=== PATIENT | male | born 1990 | race African-American/Black ===

== ENCOUNTER 2016-04-26 11:33 | Emergency (ER) | payer SELFPAY ==
--- NOTE | 2016-04-26 12:01 | ER Document Report ---
ED Medical Screen (RME) - General Stated Complaint: RIGHT TESTICLE PAIN Notes: 26 yo male c/o right testicular pain, hit in testicle with hand during basketball game. + swelling. injury occured last night. TRAVEL OUTSIDE OF THE [place] IN LAST 30 DAYS: No - Related Data Allergies/Adverse Reactions: No Known Allergies Allergy (Verified 12/24/13 11:03) Past Medical History Pulmonary Medical History: Reports: Hx Asthma - Immunizations Hx Diphtheria, Pertussis, Tetanus Vaccination: Yes Physical Exam - Vital signs Vitals: Temp Pulse Resp BP Pulse Ox 97.6 F 74 18 125/77 99 04/26/16 11:55 04/26/16 11:55 04/26/16 11:55 04/26/16 11:55 04/26/16 11:55 Course - Vital Signs Vital signs: Temp Pulse Resp BP Pulse Ox 97.6 F 74 18 125/77 99 04/26/16 11:55 04/26/16 11:55 04/26/16 11:55 04/26/16 11:55 04/26/16 11:55
[2016-04-26] MEDS ORDERED: OXYCODONE-ACETAMINOPHEN 5-325 MG TABLET PO ONE (12:02)
[2016-04-26] MEDS ORDERED: ONDANSETRON 4 MG TAB.RAPDIS PO ONE (12:02)
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
[2016-04-26 13:49] LABS: APPEARANCE,URINE CLOUDY; BILIRUBIN,URINE NEGATIVE (NEGATIVE); GLUCOSE, URINE NEGATIVE (NEGATIVE); KETONES,URINE NEGATIVE (NEGATIVE); LEUKOCYTE ESTERASE,URINE LARGE (NEGATIVE); NITRITE,URINE NEGATIVE (NEGATIVE); PROTEIN,URINE 30 mg/dL (NEGATIVE); URINE SPECIFIC GRAVITY 1.024
[2016-04-26] MEDS ORDERED: CEFTRIAXONE INJ 1000 MG VIAL IM ONE (13:52)
[2016-04-26] MEDS ORDERED: LIDOCAINE 1% INJ-PF (10 MG/ML) 30 ML SDV INJ ONE (13:52)
[2016-04-26] MEDS ORDERED: DOXYCYCLINE HYCLATE 100 MG TABLET PO ONE (13:52)
[2016-04-26 15:07] VITALS: BP 128/60
== END 2016-04-26 15:06 | disposition home or self-care (01) ==
LOC: ER 11:33
DX: S39.94XA Unspecified injury of external genitals, initial encounter (principal); N45.1 Epididymitis; N39.0 Urinary tract infection, site not specified; N50.811 Right testicular pain; F17.210 Nicotine dependence, cigarettes, uncomplicated; X58.XXXA Exposure to other specified factors, initial encounter
CPT/HCPCS: 99284; 96372; 87086; 81001; 76870; 93976; S0119; J3490; J0696

== ENCOUNTER 2016-08-26 18:15 | Emergency (ER) | payer OTHER ==
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
[2016-08-26] MEDS ORDERED: IBUPROFEN 800 MG TABLET PO ONE (18:46)
[2016-08-26] MEDS ORDERED: DIPH/PERTUSS(ACELL)/TETANUS VAC/PF 0.5 ML SYR (>=10YO) IM ONE (18:54)
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
[2016-08-26 20:26] VITALS: BP 134/87
== END 2016-08-26 20:24 | disposition home or self-care (01) ==
LOC: ER 18:15
DX: S16.1XXA Strain of muscle, fascia and tendon at neck level, initial encounter (principal); S46.912A Strain of unspecified muscle, fascia and tendon at shoulder and upper arm level, left arm, initial encounter; S20.20XA Contusion of thorax, unspecified, initial encounter; S50.312A Abrasion of left elbow, initial encounter; V48.6XXA Car passenger injured in noncollision transport accident in traffic accident, initial encounter; M54.2 Cervicalgia; M25.512 Pain in left shoulder; R07.81 Pleurodynia; M54.5 Low back pain; F17.200 Nicotine dependence, unspecified, uncomplicated; J45.909 Unspecified asthma, uncomplicated
CPT/HCPCS: 72110; 72125; 90471; 90715; 99284

== ENCOUNTER 2017-04-20 05:02 | Emergency (ER) | payer SELFPAY ==
[2017-04-20] MEDS ORDERED: NAPROXEN 250 MG TABLET PO ONE (05:17)
[2017-04-20] MEDS ORDERED: IBUPROFEN 600 MG TABLET PO ONE (05:21)
[2017-04-20] MEDS ORDERED: ACETAMINOPHEN 325 MG TABLET PO ONE (05:22)
--- NOTE | 2017-04-20 05:25 | ER Document Report ---
ED Cardiac - General Chief Complaint: Rib Pain Stated Complaint: CHEST PAIN Time Seen by Provider: 04/20/17 05:21 Notes: The patient is a 27-year-old male who presents with 3 months of intermittent left-sided chest pain that is worse with movement and palpation. He lifts heavy objects. He denies shortness of breath, nausea, vomiting, fevers, cough, hemoptysis, leg swelling, back pain, numbness or tingling. TRAVEL OUTSIDE OF THE [place] IN LAST 30 DAYS: No - Related Data Allergies/Adverse Reactions: No Known Allergies Allergy (Verified 08/26/16 18:24) Past Medical History - General Information source: Patient - Social History Smoking Status: Unknown if Ever Smoked Family History: None Pulmonary Medical History: Reports: Hx Asthma Renal/ Medical History: Denies: Hx Peritoneal Dialysis - Immunizations Hx Diphtheria, Pertussis, Tetanus Vaccination: Yes Review of Systems - Review of Systems Notes: REVIEW OF SYSTEMS: CONSTITUTIONAL: -fevers, -chills EENT: -eye pain, -difficulty swallowing, -nasal congestion CARDIOVASCULAR: +chest pain, -syncope. RESPIRATORY: -cough, -SOB GASTROINTESTINAL: -abdominal pain, -nausea, -vomiting, -diarrhea GENITOURINARY: -dysuria, -hematuria MUSCULOSKELETAL: -back pain, -neck pain SKIN: -rash or skin lesions. HEMATOLOGIC: -easy bruising or bleeding. LYMPHATIC: -swollen, enlarged glands. NEUROLOGICAL: -altered mental status or loss of consciousness, -headache, - neurologic symptoms PSYCHIATRIC: -anxiety, -depression. ALL OTHER SYSTEMS REVIEWED AND NEGATIVE. Physical Exam - Vital signs Vitals: Temp Pulse Resp BP Pulse Ox 97.6 F 62 18 121/70 100 04/20/17 05:11 04/20/17 05:11 04/20/17 05:11 04/20/17 05:11 04/20/17 05:11 - Notes Notes: PHYSICAL EXAMINATION: GENERAL: Well-appearing, well-nourished and in no acute distress. HEAD: Atraumatic, normocephalic. EYES: Pupils equal round and reactive to light, extraocular movements intact, sclera anicteric, conjunctiva are normal. ENT: nares patent, oropharynx clear without exudates. Moist mucous membranes. NECK: Normal range of motion, supple without lymphadenopathy LUNGS: Breath sounds clear to auscultation bilaterally and equal. No wheezes rales or rhonchi. CHEST WALL: Tenderness over left lateral chest wall. No rashes. HEART: Regular rate and rhythm without murmurs ABDOMEN: Soft, nontender, normoactive bowel sounds. No guarding, no rebound. No masses appreciated. EXTREMITIES: Normal range of motion, no pitting or edema. No cyanosis. NEUROLOGICAL: Cranial nerves grossly intact. Normal speech, normal gait. Normal sensory and motor exams. PSYCH: Normal mood, normal affect. SKIN: Warm, Dry, normal turgor, no rashes or lesions noted. Course - Re-evaluation Re-evalutation: Patient appears well. His symptoms are ongoing for the past 3 months and are reproducible in nature. He is PERC negative and his HEART score is 0. Instructed him to follow-up with his primary care physician after using anti- inflammatories for a recheck. - Vital Signs Vital signs: Temp Pulse Resp BP Pulse Ox 97.6 F 62 18 121/70 100 04/20/17 05:11 04/20/17 05:11 04/20/17 05:11 04/20/17 05:11 04/20/17 05:11 - Diagnostic Test Radiology reviewed: Image reviewed, Reports reviewed Radiology results interpreted by me: CXR: NAD - EKG Interpretation by Me EKG shows normal: Sinus rhythm, [place], Intervals, QRS Complexes Rate: Normal Additional EKG results interpreted by me: Early repol Discharge - Discharge Clinical Impression: Chest wall pain Condition: Stable Disposition: HOME, SELF-CARE Additional Instructions: CHEST PAIN OF UNCLEAR CAUSE: The exact cause of your chest pain isn't clear. Fortunately, there is no evidence of a dangerous medical condition. Further testing may be required to find the source of the pain. Most often, we find that this pain is coming from the chest wall -- the muscles or rib joints in the chest. But chest pain can come from the lung and lung lining, the esophagus, the heart valves or heart lining, and even the stomach or gallbladder. Rest. Eat lightly until the pain is gone. We may prescribe medicine for pain and inflammation. You should call the physician immediately if the pain radiates to the shoulder, jaw or arms; if you start to run a fever or develop a cough; or if you develop shortness of breath, or other new or alarming symptoms. NORMAL EXAM AND WORKUP: At this time, your examination and workup show no significant abnormality. No significant abnormal physical findings were noted. All laboratory, EKG, and imaging (x-ray, CT scans, ultrasound) studies that were ordered show no significant abnormality. Although your examination and all studies that were ordered showed no significant abnormal finding, there are no examinations and no studies that are 100% accurate. There is always the possibility that some abnormality could exist and not be detected with physical examination or within the limits and capabilities of laboratory and other studies. You should return or follow up as you were instructed on your visit today for further evaluation if your symptoms do not resolve. CHEST WALL PAIN: Your chest pain may be coming from the chest wall. This is often caused by straining the muscles or joints in the chest during physical activity, direct trauma, coughing, or vigorous vomiting. Persons with arthritis are especially prone to this type of pain, due to inflammation of the cartilage joints near the breast bone. Occasionally, no cause can be found. Rest from strenuous physical activity. This kind of chest pain is usually made worse by movement of the chest. Depending on the symptoms, we may prescribe medicine for pain, muscle relaxation, and antiinflammatory effects. If the pain is new, and seems to be due to muscle strain, cold packs can help. Otherwise, apply gentle warmth to the painful area for 15 minutes every hour or two. You should call contact the doctor immediately if things change. Further evaluation is needed if you develop a fever or cough, if the nature of the pain changes, or if you become short of breath. FOLLOW-UP CARE: If you have been referred to a physician for follow-up care, call the physician s office for an appointment as you were instructed or within the next two days. If you experience worsening or a significant change in your symptoms, notify the physician immediately or return to the Emergency Department at any time for re-evaluation. Prescriptions: Naproxen [Naprosyn 250 mg Tablet] 500 mg PO Q12H PRN #20 tablet PRN Reason: Referrals: [facility] [Outside] - Follow up as needed
--- NOTE | 2017-04-20 05:45 | RADIOLOGY REPORT (SQ) ---
EXAM DESCRIPTION: CHEST PA/LAT CLINICAL HISTORY: chest pain COMPARISON: None. FINDINGS: Frontal and lateral views of the chest. The cardiomediastinal silhouette has normal size and contour. No consolidation, pneumothorax, or pleural effusion. No acute osseous abnormality. Upper abdominal soft tissues are unremarkable. IMPRESSION: 1. No acute pulmonary process identified.
[2017-04-20 05:54] VITALS: BP 130/75
--- NOTE | 2017-04-20 08:53 | EKG REPORT ---
SEVERITY:- ABNORMAL ECG - SINUS RHYTHM CONSIDER LEFT VENTRICULAR HYPERTROPHY ST ELEV, PROBABLE NORMAL EARLY REPOL PATTERN : Confirmed by: Toi Mccray 20-Apr-2017 08:51:20
== END 2017-04-20 05:54 | disposition home or self-care (01) ==
LOC: ER 05:02
DX: R07.89 Other chest pain (principal); R07.81 Pleurodynia; X50.0XXA Overexertion from strenuous movement or load, initial encounter
CPT/HCPCS: 71046; 93005; 93010; 99284

== ENCOUNTER 2017-07-12 04:40 | Emergency (ER) | payer SELFPAY ==
--- NOTE | 2017-07-12 06:04 | ER Document Report ---
ED Skin Rash/Insect Bite/Abscs - General Chief Complaint: Abscess Stated Complaint: LEG PAIN Time Seen by Provider: 07/12/17 06:02 Information source: Patient Notes: This is a 27-year-old male to the emergency department complaining of pain in the right inguinal area. States that it feels like an abscess. Had this happen once when he was little and his brother took a knife to it and cut it open and a bunch of blood came out. States that has been getting progressively worse throughout the night with tenderness in the right inguinal area where the scrotum intersects with the thigh/femoral area. Denies any fevers. Denies any difficulty urinating. Does have some mild pain in the right testicle. Any medications. Not allergic to any medications. TRAVEL OUTSIDE OF THE [place] IN LAST 30 DAYS: No - HPI Patient complains to provider of: Skin rash/lesion, Tender/swollen area. No: Insect bite, Spider bite Onset: Yesterday Onset/Duration: Gradual Quality of pain: Achy, Throbbing - Related Data Allergies/Adverse Reactions: No Known Allergies Allergy (Verified 08/26/16 18:24) Past Medical History - General Information source: Patient - Social History Smoking Status: Never Smoker Frequency of alcohol use: None Drug Abuse: None Lives with: Alone Family History: None - Medical History Medical History: Negative Pulmonary Medical History: Reports: Hx Asthma Renal/ Medical History: Denies: Hx Peritoneal Dialysis Infectious Medical History: Reports: None Surgical Hx: Negative - Immunizations Hx Diphtheria, Pertussis, Tetanus Vaccination: Yes Review of Systems - Review of Systems Constitutional: denies: Fever, Malaise, Weakness EENT: denies: Eye pain, Difficulty swallowing, Mouth pain Cardiovascular: denies: Chest pain, Dyspnea, Dizziness Respiratory: denies: Cough, Short of breath, Wheezing Gastrointestinal: denies: Abdominal pain, Nausea, Vomiting Genitourinary: denies: Burning, Dysuria, Discharge Male Genitourinary: See HPI, Testicular pain. denies: Penile discharge Musculoskeletal: denies: Back pain, Muscle pain, Leg swelling Skin: See HPI, Lesions, Lumps Hematologic/Lymphatic: No symptoms reported Neurological/Psychological: denies: Confusion, Weakness, Numbness Physical Exam - Vital signs Vitals: Temp Pulse Resp BP Pulse Ox 97.9 F 68 18 148/76 H 99 07/12/17 04:46 05/31/18 04:46 07/12/17 04:46 07/12/17 04:46 07/12/17 04:46 Interpretation: Normal - General General appearance: Appears well, Alert - HEENT Head: Normocephalic, Atraumatic Eyes: Normal Pupils: PERRL - Respiratory Respiratory status: No respiratory distress Chest status: Nontender Breath sounds: Normal Chest palpation: Normal - Cardiovascular Rhythm: Regular Heart sounds: Normal auscultation Murmur: No - Abdominal Inspection: Normal Distension: No distension Bowel sounds: Normal Tenderness: Nontender Organomegaly: No organomegaly - Genitourinary Inspection: Other - Is a small area of tenderness where the scrotum meets the inguinal/femoral area. There is some fullness there. Small amount of lymphadenopathy present. Right testicle is palpable. Mildly tender but mobile. - Extremities General upper extremity: Normal inspection, Nontender, Normal color, Normal ROM , Normal temperature General lower extremity: Normal color, Normal ROM, Normal temperature, Normal weight bearing, Other - Tenderness to palpation right inguinal area. No: Aman' s sign - Neurological Neuro grossly intact: Yes Cognition: Normal Orientation: AAOx4 Kandy Coma Scale Eye Opening: Spontaneous Kandy Coma Scale Verbal: Oriented Kandy Coma Scale Motor: Obeys Commands Kandy Coma Scale Total: 15 Speech: Normal Motor strength normal: LUE, RUE, LLE, RLE Sensory: Normal - Skin Skin Temperature: Warm Skin Moisture: Dry Skin Color: Normal, Other - Mild tenderness and swelling in the right inguinal area where the scrotum meets the thigh. Course - Re-evaluation Re-evalutation: 07/12/17 09:29 Labs are fairly unremarkable. Ultrasound was used to locate the most fluctuant area. Abscess I&D was performed. Please see procedure note. Iodoform gauze approximately 3 inches placed. Instructed patient on how to place gauze. Instructed him to return in 24 hours for recheck. 07/12/17 09:32 Laboratory 07/12/17 07/12/17 07/12/17 06:40 06:40 06:40 WBC 9.5 RBC 4.10 L Hgb 13.3 L Hct 37.9 MCV 92 MCH 32.4 MCHC 35.1 RDW 13.6 Plt Count 244 Seg Neutrophils % 63.8 Lymphocytes % 19.7 Monocytes % 8.5 Eosinophils % 7.1 H Basophils % 0.9 Absolute Neutrophils 6.1 Absolute Lymphocytes 1.9 Absolute Monocytes 0.8 Absolute Eosinophils 0.7 H Absolute Basophils 0.1 Sodium 141.8 Potassium 4.4 Chloride 105 Carbon Dioxide 29 Anion Gap 8 BUN 14 Creatinine 0.98 Est GFR ( Amer) > 60 Est GFR (Non-Af Amer) > 60 Glucose 103 Lactic Acid 1.0 Calcium 9.8 Total Bilirubin 0.1 L Direct Bilirubin 0.1 Neonat Total Bilirubin Not Reportable Neonat Direct Bilirubin Not Reportable Neonat Indirect Bili Not Reportable AST 15 L ALT 21 Alkaline Phosphatase 52 Total Protein 6.9 Albumin 3.7 Urine Color Urine Appearance Urine pH Ur Specific [place] Urine Protein Urine Glucose (UA) Urine Ketones Urine Blood Urine Nitrite Urine Bilirubin Urine Urobilinogen Ur Leukocyte Esterase Urine WBC (Auto) Urine RBC (Auto) Urine Mucus (Auto) Urine Ascorbic Acid 07/12/17 06:45 WBC RBC Hgb Hct MCV MCH MCHC RDW Plt Count Seg Neutrophils % Lymphocytes % Monocytes % Eosinophils % Basophils % Absolute Neutrophils Absolute Lymphocytes Absolute Monocytes Absolute Eosinophils Absolute Basophils Sodium Potassium Chloride Carbon Dioxide Anion Gap BUN Creatinine Est GFR ( Amer) Est GFR (Non-Af Amer) Glucose Lactic Acid Calcium Total Bilirubin Direct Bilirubin Neonat Total Bilirubin Neonat Direct Bilirubin Neonat Indirect Bili AST ALT Alkaline Phosphatase Total Protein Albumin Urine Color YELLOW Urine Appearance CLEAR Urine pH 6.0 Ur Specific [place] 1.017 Urine Protein NEGATIVE Urine Glucose (UA) NEGATIVE Urine Ketones NEGATIVE Urine Blood NEGATIVE Urine Nitrite NEGATIVE Urine Bilirubin NEGATIVE Urine Urobilinogen 2.0 H Ur Leukocyte Esterase NEGATIVE Urine WBC (Auto) 1 Urine RBC (Auto) 0 Urine Mucus (Auto) RARE Urine Ascorbic Acid NEGATIVE Scrotum Ultrasound 07/12/17 06:19 IMPRESSION: 1. Normal blood flow identified in the testicles bilaterally. 2. In the area of concern in the inferior scrotum and right thigh there is a 3.2 cm heterogeneous fluid collection with increased vascularity. These findings are concerning for abscess. Hematoma or seroma could possibly produce similar appearance. 3. Mild prominence of the right scrotal soft tissues likely represent cellulitis - Vital Signs Vital signs: Temp Pulse Resp BP Pulse Ox 97.9 F 68 18 148/76 H 99 07/12/17 04:46 07/12/17 04:46 07/12/17 04:46 07/12/17 04:46 07/12/17 04:46 - Laboratory Result Diagrams: 07/12/17 06:40 07/12/17 06:40 Laboratory results interpreted by me: 07/12/17 07/12/17 07/12/17 06:40 06:40 06:45 RBC 4.10 L Hgb 13.3 L Eosinophils % 7.1 H Absolute Eosinophils 0.7 H Total Bilirubin 0.1 L AST 15 L Urine Urobilinogen 2.0 H Procedures - Incision and Drainage Right Lower Leg Type: Simple Anesthetic type: 1% Lidocaine mL's of anesthetic: 8 Blade size: 11 I&D procedure: Betadine prep applied, Iodoform packing placed Incision Method: Incision made by scalpel Amount/type of drainage: 5 Male anatomy: 1 - Right inguinal area Discharge - Discharge Clinical Impression: Abscess of groin, right Condition: Good Disposition: HOME, SELF-CARE Instructions: Abscess ([facility]), Trimethoprim-Sulfa ([facility]), Cephalexin ([facility]) Additional Instructions: In 24 hours for recheck. If unable to be seen in 24 hours then the packing will need to be replaced as described and instructed in the emergency department by Dr. Guido. In the event that you develop any worsening symptoms including but not limited to the following, then please return: Swelling of the scrotum, swelling of the leg, fever, bleeding or for other concerns Prescriptions: Cephalexin Monohydrate [Keflex 500 mg Capsule] 500 mg PO Q6H 78 Days #28 capsule Hydrocodone/Acetaminophen [Elton 5-325 mg Tablet] 1 tab PO TID PRN 2 Days #6 tablet PRN Reason: Sulfamethoxazole/Trimethoprim [Bactrim Ds Tablet] 1 each PO BID 7 Days #14 tablet Referrals: JANETH MEZA II, MD [JACKI PRYOR] - Follow up in 3-5 days
[2017-07-12] MEDS ORDERED: KETOROLAC TROMETHAMINE INJ/PF 30 MG/1 ML SDV IV ONE (06:19)
[2017-07-12] MEDS ORDERED: CEFTRIAXONE 1 GM/D5W RTU 1 GM/50 ML RTUPB IV ONE (06:19)
[2017-07-12 06:50] LABS: ABSOLUTE BASOPHILS # (AUTO) 0.1 10^3/uL (0.0-0.2); ABSOLUTE EOSINOPHILS # (AUTO) 0.7 10^3/uL (0.0-0.6); ABSOLUTE LYMPHOCYTES (AUTO) 1.9 10^3/uL (0.5-4.7); ABSOLUTE MONOCYTES (AUTO) 0.8 10^3/uL (0.1-1.4); ABSOLUTE NEUT (AUTO) 6.1 10^3/uL (1.7-8.2); BASOPHILS % (AUTO) 0.9 % (0-2); EOSINOPHILS % (AUTO) 7.1 % (0-6); HEMATOCRIT 37.9 % (37.9-51.0); HEMOGLOBIN 13.3 g/dL (13.5-17.0); LYMPHOCYTES % (AUTO) 19.7 % (13-45); MEAN CORPUSCULAR HEMOGLOBIN 32.4 pg (27.0-33.4); MEAN CORPUSCULAR HGB CONC 35.1 g/dL (32.0-36.0); MEAN CORPUSCULAR VOLUME 92 fl (80-97); MONOCYTES % (AUTO) 8.5 % (3-13); PLATELET COUNT 244 10^3/uL (150-450); RED CELL DISTRIBUTION WIDTH 13.6 % (11.5-14.0); SEGMENTED NEUTROPHILS % (AUTO) 63.8 % (42-78); TOTAL CELLS COUNTED % (AUTO) 100 %; WHITE BLOOD COUNT 9.5 10^3/uL (4.0-10.5)
[2017-07-12 07:01] LABS: APPEARANCE,URINE CLEAR; BILIRUBIN,URINE NEGATIVE (NEGATIVE); COLOR,URINE YELLOW; GLUCOSE, URINE NEGATIVE (NEGATIVE); KETONES,URINE NEGATIVE (NEGATIVE); LEUKOCYTE ESTERASE,URINE NEGATIVE (NEGATIVE); NITRITE,URINE NEGATIVE (NEGATIVE); PROTEIN,URINE NEGATIVE (NEGATIVE); URINE SPECIFIC GRAVITY 1.017
[2017-07-12 07:05] LABS: ALANINE AMINOTRANSFERASE 21 U/L (21-72); ALBUMIN 3.7 g/dL (3.5-5.0); ALKALINE PHOSPHATASE 52 U/L (38-126); ANION GAP 8 (5-19); ASPARTATE AMINO TRANSFERASE 15 U/L (17-59); BILIRUBIN,DIRECT 0.1 mg/dL (0.0-0.4); BILIRUBIN,TOTAL 0.1 mg/dL (0.2-1.3); BLOOD UREA NITROGEN 14 mg/dL (7-20); CALCIUM 9.8 mg/dL (8.4-10.2); CARBON DIOXIDE 29 mmol/L (22-30); CHLORIDE 105 mmol/L (98-107); GLUCOSE 103 mg/dL (75-110); POTASSIUM 4.4 mmol/L (3.6-5.0); SODIUM 141.8 mmol/L (137-145); TOTAL PROTEIN 6.9 g/dL (6.3-8.2)
[2017-07-12] MEDS ORDERED: LIDOCAINE 1% INJ-PF (10 MG/ML) 30 ML SDV INJ ONE (07:49)
--- NOTE | 2017-07-12 08:00 | RADIOLOGY REPORT (SQ) ---
EXAM DESCRIPTION: Complete testicular ultrasound CLINICAL HISTORY: 27 years Male, swelling right iguinal and right scrotal area COMPARISON: 05/15/2015 TECHNIQUE: Real-time sonographic images of the scrotal contents obtained using a linear multi hertz transducer. Color and spectral Doppler imaging was also obtained. FINDINGS: Testicles: The right testicle measures 4.5 x 3.3 x 1.3 cm. The left testicle measures 4.9 x 2.8 x 2.1 cm. No solid intratesticular mass identified. Homogenous echogenicity of the testicles. Epididymis:No abnormalities of the epididymis. Hydrocele: Small bilateral hydroceles. Blood flow:Normal arterial and venous blood flow identified bilaterally. Other: In the area of concern in the inferior scrotum and right thigh there is a heterogeneous fluid collection measuring 3.2 x 1.5 x 1.1 cm with increased vascularity. IMPRESSION: 1. Normal blood flow identified in the testicles bilaterally. 2. In the area of concern in the inferior scrotum and right thigh there is a 3.2 cm heterogeneous fluid collection with increased vascularity. These findings are concerning for abscess. Hematoma or seroma could possibly produce similar appearance. 3. Mild prominence of the right scrotal soft tissues likely represent cellulitis
[2017-07-12 09:40] VITALS: BP 142/87
== END 2017-07-12 09:39 | disposition home or self-care (01) ==
LOC: ER 04:40
DX: L02.214 Cutaneous abscess of groin (principal); J45.909 Unspecified asthma, uncomplicated
CPT/HCPCS: 99284; 96375; 96365; 36415; 85025; 80053; 81001; 83605; 76870; 93976; 10060; A6266; J1885; J0696

== ENCOUNTER 2017-07-13 11:51 | Emergency (ER) | payer SELFPAY ==
[2017-07-13 11:56] VITALS: BP 128/73
--- NOTE | 2017-07-13 12:49 | ER Document Report ---
ED Wound - General Chief Complaint: Wound Recheck Stated Complaint: WOUND RECHECK Time Seen by Provider: 07/13/17 12:46 Notes: Patient was seen yesterday for abscess I&D of the right inguinal area. No complaints at this time. Here for packing removal and repacking. TRAVEL OUTSIDE OF THE [place] IN LAST 30 DAYS: No - Related Data Allergies/Adverse Reactions: No Known Allergies Allergy (Verified 07/13/17 12:34) Past Medical History - General Information source: Patient - Social History Smoking Status: Unknown if Ever Smoked Chew tobacco use (# tins/day): No Frequency of alcohol use: None Drug Abuse: None Lives with: Family Family History: None Patient has suicidal ideation: No Patient has homicidal ideation: No Pulmonary Medical History: Reports: Hx Asthma Renal/ Medical History: Denies: Hx Peritoneal Dialysis - Immunizations Hx Diphtheria, Pertussis, Tetanus Vaccination: Yes Review of Systems - Review of Systems Constitutional: denies: Chills, Diaphoresis, Fever Cardiovascular: denies: Chest pain, Palpitations, Heart racing Respiratory: denies: Short of breath Skin: See HPI, Lesions, Other - Abscess right leg Physical Exam - Vital signs Vitals: Temp Pulse Resp BP Pulse Ox 99.1 F 87 18 128/73 H 98 07/13/17 11:54 07/13/17 11:54 07/13/17 11:54 07/13/17 11:54 07/13/17 11:54 Interpretation: Normal - Respiratory Respiratory status: No respiratory distress Breath sounds: Normal Chest palpation: Normal - Cardiovascular Rhythm: Regular Heart sounds: Normal auscultation Murmur: No - Extremities General upper extremity: Normal inspection, Nontender, Normal color, Normal ROM , Normal temperature General lower extremity: Normal inspection, Nontender, Normal color, Normal ROM , Normal temperature, Normal weight bearing. No: Aman's sign - Skin Skin Temperature: Warm Skin Moisture: Dry Skin Color: Normal, Other - Abscess in the right inguinal area packing in place. Small amount of active drainage on the packing wick. Course - Re-evaluation Re-evalutation: 07/13/17 12:48 Consent was obtained for repacking. Packing was removed. 2 inches of plain quarter-inch gauze were reinserted and the abscess. No complications. Patient tolerated procedure well. - Vital Signs Vital signs: Temp Pulse Resp BP Pulse Ox 99.1 F 87 18 128/73 H 98 07/13/17 11:54 07/13/17 11:54 07/13/17 11:54 07/13/17 11:54 07/13/17 11:54 Discharge - Discharge Clinical Impression: Abscess Condition: Good Disposition: HOME, SELF-CARE Instructions: Abscess ([facility]), Post Incision and Drainage Additional Instructions: Return if needed for packing removal and replacement. Continue with recommendations as provided yesterday. Return for any worsening symptoms or concerns.
== END 2017-07-13 12:52 | disposition home or self-care (01) ==
LOC: ER 11:51
DX: L02.214 Cutaneous abscess of groin (principal); J45.909 Unspecified asthma, uncomplicated
CPT/HCPCS: 99283

== ENCOUNTER 2017-09-30 11:45 | Emergency (ER) | payer SELFPAY ==
[2017-09-30] MEDS ORDERED: IPRATROPIUM/ALBUTEROL 0.5-2.5 MG/3 ML AMPUL NEB ONE (12:08)
--- NOTE | 2017-09-30 12:10 | ER Document Report ---
ED Medical Screen (RME) - General Chief Complaint: Chest Pain Stated Complaint: CHEST PAIN Time Seen by Provider: 09/30/17 12:00 Mode of Arrival: Ambulatory Information source: Patient Notes: This is a 27-year-old male reports a history of chronic chest pains and states he was told he has "dilation of the right side of his heart" at [facility] a year ago. He is currently on no medicines. He states this morning he started to have retrosternal nonradiating associated with shortness of breath. He states that he was wheezing this morning. He is a smoker. He denies cocaine use. TRAVEL OUTSIDE OF THE [place] IN LAST 30 DAYS: No - Related Data Allergies/Adverse Reactions: No Known Allergies Allergy (Verified 09/30/17 11:48) Past Medical History - Social History Frequency of alcohol use: Occasional Drug Abuse: Marijuana Pulmonary Medical History: Reports: Hx Asthma Renal/ Medical History: Denies: Hx Peritoneal Dialysis - Immunizations Hx Diphtheria, Pertussis, Tetanus Vaccination: Yes Physical Exam - Vital signs Vitals: Temp Pulse Resp BP Pulse Ox 98.2 F 59 L 18 123/79 100 09/30/17 11:53 09/30/17 11:53 09/30/17 11:53 09/30/17 11:53 09/30/17 11:53 Course - Vital Signs Vital signs: Temp Pulse Resp BP Pulse Ox 98.2 F 59 L 18 123/79 100 09/30/17 11:53 09/30/17 11:53 09/30/17 11:53 09/30/17 11:53 09/30/17 11:53
[2017-09-30 12:31] LABS: ABSOLUTE BASOPHILS # (AUTO) 0.1 10^3/uL (0.0-0.2); ABSOLUTE EOSINOPHILS # (AUTO) 0.1 10^3/uL (0.0-0.6); ABSOLUTE LYMPHOCYTES (AUTO) 1.9 10^3/uL (0.5-4.7); ABSOLUTE MONOCYTES (AUTO) 0.5 10^3/uL (0.1-1.4); ABSOLUTE NEUT (AUTO) 4.1 10^3/uL (1.7-8.2); BASOPHILS % (AUTO) 0.9 % (0-2); EOSINOPHILS % (AUTO) 2.2 % (0-6); HEMATOCRIT 42.1 % (37.9-51.0); HEMOGLOBIN 14.2 g/dL (13.5-17.0); MEAN CORPUSCULAR HEMOGLOBIN 30.9 pg (27.0-33.4); MEAN CORPUSCULAR HGB CONC 33.7 g/dL (32.0-36.0); MEAN CORPUSCULAR VOLUME 92 fl (80-97); PLATELET COUNT 293 10^3/uL (150-450); RED BLOOD COUNT 4.59 10^6/uL (4.35-5.55); RED CELL DISTRIBUTION WIDTH 13.9 % (11.5-14.0); SEGMENTED NEUTROPHILS % (AUTO) 60.9 % (42-78); TOTAL CELLS COUNTED % (AUTO) 100 %; WHITE BLOOD COUNT 6.7 10^3/uL (4.0-10.5)
[2017-09-30 12:52] LABS: ALANINE AMINOTRANSFERASE 17 U/L (21-72); ALBUMIN 4.5 g/dL (3.5-5.0); ALKALINE PHOSPHATASE 60 U/L (38-126); ANION GAP 11 (5-19); ASPARTATE AMINO TRANSFERASE 21 U/L (17-59); BILIRUBIN,DIRECT 0.2 mg/dL (0.0-0.4); BLOOD UREA NITROGEN 11 mg/dL (7-20); CALCIUM 10.3 mg/dL (8.4-10.2); CARBON DIOXIDE 26 mmol/L (22-30); CHLORIDE 104 mmol/L (98-107); CREATINE KINASE 132 U/L (55-170); GLUCOSE 80 mg/dL (75-110); POTASSIUM 4.2 mmol/L (3.6-5.0); SODIUM 141.4 mmol/L (137-145); TOTAL PROTEIN 8.6 g/dL (6.3-8.2)
--- NOTE | 2017-09-30 12:55 | RADIOLOGY REPORT (SQ) ---
EXAM DESCRIPTION: CHEST 2 VIEWS COMPLETED DATE/TIME: 09/30/2017 12:33 pm REASON FOR STUDY: cp/sob COMPARISON: 04/20/2017 EXAM PARAMETERS: NUMBER OF VIEWS: two views TECHNIQUE: Digital Frontal and Lateral radiographic views of the chest acquired. RADIATION DOSE: NA LIMITATIONS: none FINDINGS: LUNGS AND PLEURA: No opacities, masses or pneumothorax. No pleural effusion. MEDIASTINUM AND HILAR STRUCTURES: No masses or contour abnormalities. HEART AND VASCULAR STRUCTURES: Heart normal size. No evidence for failure. BONES: No acute findings. HARDWARE: None in the chest. OTHER: No other significant finding. IMPRESSION: NO ACUTE RADIOGRAPHIC FINDING IN THE CHEST. TECHNICAL DOCUMENTATION: JOB ID: [id number] [employer]- All Rights Reserved Reading location - IP/workstation name: [email or web address]
--- NOTE | 2017-09-30 12:58 | EKG REPORT ---
SEVERITY:- BORDERLINE ECG - SINUS RHYTHM BORDERLINE T ABNORMALITIES, INFERIOR LEADS ST ELEV, PROBABLE NORMAL EARLY REPOL PATTERN : Confirmed by: Tavo Ramirez MD 30-Sep-2017 12:57:17
[2017-09-30 13:11] LABS: CREATINE KINASE MB 0.42 ng/mL (<4.55); TROPONIN I < 0.012 ng/mL
[2017-09-30] MEDS ORDERED: LIDOCAINE 5% (700 MG) TRANSDERMAL ADH..PATCH TP ONE (13:24)
[2017-09-30] MEDS ORDERED: KETOROLAC TROMETHAMINE INJ/PF 30 MG/1 ML SDV IV ONE (13:24)
--- NOTE | 2017-09-30 13:41 | ER Document Report ---
ED General - General Chief Complaint: Chest Pain Stated Complaint: CHEST PAIN Time Seen by Provider: 09/30/17 12:00 Mode of Arrival: Ambulatory TRAVEL OUTSIDE OF THE [place] IN LAST 30 DAYS: No - HPI Patient complains to provider of: Left-sided chest pain shortness of breath Notes: Patient was removed currently states working intensively over the last few days developed left-sided chest pain however states is also shows shortness of breath and difficulty breathing because of the pain. Patient denies any recent travel. Patient denies any however has not followed up since that time. fevers chills nausea vomiting diarrhea. Patient does state he was at [facility] for chest pain told he had an enlarged right side of the heart patient resting comfortably upon my evaluation. During my evaluation patient does start to have some tremors. Patient is able to point to the left side chest lower ribs approximately 6 7 as far as the pain on the left side pain does increase with movement and increased with breathing - Related Data Allergies/Adverse Reactions: No Known Allergies Allergy (Verified 09/30/17 11:48) Past Medical History - General Information source: Patient - Social History Smoking Status: Current Every Day Smoker Frequency of alcohol use: Occasional Drug Abuse: Marijuana Family History: None Patient has suicidal ideation: No Patient has homicidal ideation: No Pulmonary Medical History: Reports: Hx Asthma Renal/ Medical History: Denies: Hx Peritoneal Dialysis - Immunizations Hx Diphtheria, Pertussis, Tetanus Vaccination: Yes Review of Systems - Review of Systems Constitutional: No symptoms reported EENT: No symptoms reported Cardiovascular: Chest pain Respiratory: No symptoms reported Gastrointestinal: No symptoms reported Genitourinary: No symptoms reported Male Genitourinary: No symptoms reported Musculoskeletal: No symptoms reported Skin: No symptoms reported Hematologic/Lymphatic: No symptoms reported Neurological/Psychological: No symptoms reported -: Yes All other systems reviewed and negative Physical Exam - Vital signs Vitals: Temp Pulse Resp BP Pulse Ox 98.2 F 59 L 18 123/79 100 09/30/17 11:53 09/30/17 11:53 09/30/17 11:53 09/30/17 11:53 09/30/17 11:53 Interpretation: Normal - General General appearance: Appears well, Alert - HEENT Head: Normocephalic, Atraumatic Eyes: Normal Pupils: PERRL - Respiratory Respiratory status: No respiratory distress Chest status: Tender - Tenderness palpation of the left lower chest along the insertion site of the pectoralis major muscles. There is no tenderness palpation of the coracoid process is no tenderness to palpation of the left sternal border as well. No signs of any trauma. Bedside ultrasound does not show any signs of a pericardial effusion cardiac motion was to be normal Breath sounds: Normal Chest palpation: Normal - Cardiovascular Rhythm: Regular Heart sounds: Normal auscultation Murmur: No - Abdominal Inspection: Normal Distension: No distension Bowel sounds: Normal Tenderness: Nontender Organomegaly: No organomegaly - Back Back: Normal, Nontender - Extremities General upper extremity: Normal inspection, Nontender, Normal color, Normal ROM , Normal temperature General lower extremity: Normal inspection, Nontender, Normal color, Normal ROM , Normal temperature, Normal weight bearing. No: Aman's sign - Neurological Neuro grossly intact: Yes Cognition: Normal Orientation: AAOx4 Kandy Coma Scale Eye Opening: Spontaneous Kandy Coma Scale Verbal: Oriented Kandy Coma Scale Motor: Obeys Commands Kandy Coma Scale Total: 15 Speech: Normal Motor strength normal: LUE, RUE, LLE, RLE Sensory: Normal - Psychological Associated symptoms: Normal affect, Normal mood - Skin Skin Temperature: Warm Skin Moisture: Dry Skin Color: Normal Course - Re-evaluation Re-evalutation: 09/30/17 14:57 Examination consistent with chest wall painMore likely etiology is a pec muscle strain the patient states he has increased his activity working for the [id number] last 24-48 hours. Otherwise EKG laboratory studies d-dimer all negative for any critical pathology. Highly recommend patient follow-up with primary care physician and also gave the patient cardiology referral for this finding the patient states right side of his heart is enlarged patient will be discharged home 09/30/17 14:58 Tremor subsided at the explanation more likely muscle strain The patient has atypical chest pain as the patient's chest pain is not suggestive of pulmonary embolus, cardiac ischemia, aortic dissection, or other serious etiology. Given the extremely low risk of these diagnoses further testing and evaluation for these possibilities does not appear to be indicated at this time. The patient has been instructed to return if the symptoms worsen or change in any way. - Vital Signs Vital signs: Temp Pulse Resp BP Pulse Ox 98.1 F 61 16 138/76 H 100 09/30/17 14:36 09/30/17 14:36 09/30/17 14:36 09/30/17 14:36 09/30/17 14:36 - Laboratory Result Diagrams: 09/30/17 12:17 09/30/17 12:17 Laboratory results interpreted by me: 09/30/17 12:17 Calcium 10.3 H ALT 17 L Total Protein 8.6 H Discharge - Discharge Clinical Impression: Chest wall pain Disposition: HOME, SELF-CARE Instructions: Anti-Inflammatory Medication ([facility]), Chest Wall Pain ([facility]), Chest Pain of Unclear Cause ([facility]), Muscle Strain ([facility]) Additional Instructions: Laboratory studies EKG chest x-ray did not show any critical pathology diagnosed as pneumonia cardiac ischemia blood clots within the lungs a little abnormalities. We will likely you have a pictorial muscle strain or suffering from chest wall pain. Treatment involves anti-inflammatory medication hydration and use of Tylenol also for pain control. Please follow-up with your primary care physician return to the ER symptoms worsen. I would highly recommend she follow-up with the strategic planning director listed. They are located here in [place] can come further evaluate you Prescriptions: Ibuprofen [Motrin 600 mg Tablet] 600 mg PO Q8HP PRN #21 tablet PRN Reason: Forms: Return to Work Referrals: RICCARDO MARTÍNEZ MD [ACTIVE STAFF] - Follow up as needed
[2017-09-30 14:52] VITALS: BP 138/76
== END 2017-09-30 14:39 | disposition home or self-care (01) ==
LOC: ER 11:45
DX: R07.89 Other chest pain (principal); R06.02 Shortness of breath; F17.200 Nicotine dependence, unspecified, uncomplicated
CPT/HCPCS: 93005; 94640; 99285; 96374; 36415; 82553; 82550; 85025; 80053; 84484; 85379; 71046; 93010; J1885; J7620

== ENCOUNTER 2018-02-10 08:39 | Emergency (ER) | payer SELFPAY ==
--- NOTE | 2018-02-10 09:32 | ER Document Report ---
ED Extremity Problem, Lower - General Chief Complaint: Knee Pain Stated Complaint: KNEE PAIN Time Seen by Provider: 02/10/18 09:15 Mode of Arrival: Ambulatory - crutches Information source: Patient Notes: 28-year-old male presents to ED for complaint of left knee pain since he was playing basketball yesterday running down the court when someone ran into his knee. In the head according to patient. He states in high school he tore his MCL and sprained his ACL and received shots into his need to rehabilitate the knee. He was told that he would need to at some point have surgery and he has not had surgery to this yet. He does have severe pain and swelling to the medial aspect of his knee. He states he is unable to bend his knee or to lift his knee very much on his arm. He does have good pedal pulses good cap refills and is able to bend the knee slightly. He states he does not want his knee moved until it is x-rayed to be sure there is no broken bones we will assess the knee after x-rays. Patient did come to the ER on crutches that he had from his injury in high school. Patient refused Tylenol or Motrin at this time he also refused ice packs. TRAVEL OUTSIDE OF THE [place] IN LAST 30 DAYS: No - HPI Patient complains to provider of: Injury, Pain, Swelling Location: Knee - Left knee Occurred: Yesterday Where: Public place, Sports - Playing basketball Onset/Duration: Sudden, Persistent Quality of pain: Sharp, Throbbing Severity: Severe Pain Level: 5 Context: Other - Someone ran into his knee while he was running down the court playing basketball Recent injury: Yes Associated symptoms: Unable to bear weight Exacerbated by: Movement, Walking Relieved by: Elevation, Ice, Rest - Related Data Allergies/Adverse Reactions: No Known Allergies Allergy (Verified 02/10/18 08:40) Past Medical History - General Information source: Patient - Social History Smoking Status: Current Every Day Smoker Cigarette use (# per day): Yes - 1/2ppd Chew tobacco use (# tins/day): No Smoking Education Provided: Yes - 4 min Frequency of alcohol use: Occasional Drug Abuse: Marijuana Occupation: tire shop Family History: None Patient has suicidal ideation: No Patient has homicidal ideation: No - Past Medical History Cardiac Medical History: Reports: None Pulmonary Medical History: Reports: Hx Asthma EENT Medical History: Reports: None Neurological Medical History: Reports: None Endocrine Medical History: Reports: None Renal/ Medical History: Reports: None Malignancy Medical History: Reports None GI Medical History: Reports: None Musculoskeletal Medical History: Reports Hx Musculoskeletal Trauma Skin Medical History: Reports None Infectious Medical History: Reports: None Surgical Hx: Negative Past Surgical History: Reports: None - Immunizations Hx Diphtheria, Pertussis, Tetanus Vaccination: Yes Review of Systems - Review of Systems Constitutional: No symptoms reported EENT: No symptoms reported Cardiovascular: No symptoms reported Respiratory: No symptoms reported Gastrointestinal: No symptoms reported Genitourinary: No symptoms reported Male Genitourinary: No symptoms reported Musculoskeletal: Joint pain - left knee medial swelling, Joint swelling, Muscle pain Skin: No symptoms reported Hematologic/Lymphatic: No symptoms reported Neurological/Psychological: No symptoms reported -: Yes All other systems reviewed and negative Physical Exam - Vital signs Vitals: Temp Pulse Resp BP Pulse Ox 98.8 F 88 16 134/91 H 99 02/10/18 08:52 02/10/18 08:52 02/10/18 08:52 02/10/18 08:52 02/10/18 08:52 Interpretation: Normal - General General appearance: Appears well, Alert - HEENT Head: Normocephalic, Atraumatic Eyes: Normal Pupils: PERRL - Respiratory Respiratory status: No respiratory distress Chest status: Nontender Breath sounds: Normal Chest palpation: Normal - Cardiovascular Rhythm: Regular Heart sounds: Normal auscultation Murmur: No - Abdominal Inspection: Normal Distension: No distension Bowel sounds: Normal Tenderness: Nontender Organomegaly: No organomegaly - Back Back: Normal, Nontender - Extremities General upper extremity: Normal inspection, Nontender, Normal color, Normal ROM, Normal temperature General lower extremity: Nontender, Normal color, Normal ROM, Normal temperature, Normal weight bearing. No: Aman's sign Knee: Tender, Pain with ROM, Patellar tendon intact, Tender joint line, Unable to bear weight. No: Popliteal fossa tender - Neurological Neuro grossly intact: Yes Cognition: Normal Orientation: AAOx4 Kandy Coma Scale Eye Opening: Spontaneous [place] Coma Scale Verbal: Oriented [place] Coma Scale Motor: Obeys Commands K[place] Coma Scale Total: 15 Speech: Normal Motor strength normal: LUE, RUE, LLE, RLE Sensory: Normal - Psychological Associated symptoms: Normal affect, Normal mood - Skin Skin Temperature: Warm Skin Moisture: Dry Skin Color: Normal Course - Re-evaluation Re-evalutation: 02/10/18 11:18 Patient was given instructions on ice elevation ibuprofen and knee exercises. Patient was informed that he need to follow-up with orthopedics for this knee injury as there was no bony abnormalities and that he probably had a internal knee injury. Patient verbalized understanding and agreement with treatment plan and stated he would follow-up with orthopedics. - Vital Signs Vital signs: Temp Pulse Resp BP Pulse Ox 98.2 F 70 16 147/87 H 100 02/10/18 10:15 02/10/18 10:15 02/10/18 10:15 02/10/18 10:15 02/10/18 10:15 - Diagnostic Test Radiology reviewed: Image reviewed, Reports reviewed Procedures - Immobilization Left Knee Time completed: 09:40 Pre-Proc Neuro Vasc Exam: Normal Immobilizer type: Knee immobilizer Performed by: PCT Post-Proc Neuro Vasc Exam: Normal Alignment checked and good: Yes Discharge - Discharge Clinical Impression: Left knee injury Qualifiers: Encounter type: initial encounter Qualified Code(s): S89.92XA - Unspecified injury of left lower leg, initial encounter Condition: Stable Disposition: HOME, SELF-CARE Additional Instructions: SUSPECTED INTERNAL KNEE INJURY: The examiner of your injured knee suspects an internal injury to the cartil age or internal ligaments. This must be further investigated by an supplier specialist. The knee should be protected, ice packed, and elevated while awaiting your follow-up exam by the orthopedist. If there is severe swelling, severe pain, or any new symptoms while awaiting your exam, you should call the orthopedist. (If he/she is unavailable, call us or return for re-examination.) KNEE IMMOBILIZING SPLINT: The knee immobilizing splint will protect the injury while healing begins. This type of splint does not allow the knee to bend at all. No running or sports will be possible. If the splint allows painfree walking, it's giving adequate protection. If there is still significant pain, crutches may be needed as well. Don't do anything that hurts. Adjusted the splint, if necessary. The stiffeners on the sides are attached with Velcro, so they can be easily moved to adjust for thigh and calf size. If you need help with these adjustments, come back. You will lose muscle strength in the thigh while using this splint. The doctor will advise you if it's safe to do isometric knee exercises while you use it. USE OF CRUTCHES: Please use your crutches that you brought with you. Please do not walk without the crutches until you have followed up with orthopedics as you have no pain in your knee The doctor has recommended that you not bear weight at this time. You will need to use crutches. Adjust the crutches so the tops come to about two inches under the armpit while you are standing upright. Use your hands -- not your armpits -- to support your weight. To get into a chair, support yourself with one crutch on the injured side. Hold the chair with the other hand, then lower yourself while putting all your weight on the good leg. Going up stairs is `good leg up, step up, then bring up crutches and bad leg.' Down stairs is `bad leg and crutches down, then bring good leg down.' If you develop numbness or swelling in an arm or hand, you are using the crutches incorrectly. Return if you are having any problems with the crutches. ICE & ELEVATION: Apply ice packs frequently against the painful area. Many different schedules are recommended, such as "20 minutes on, 20 minutes off" or "one hour ice, two hours rest." If you need to work, you may need to go longer between ice treatments. You should plan to have the area ice packed AT LEAST one-fourth of the time. The ice should be applied over the wrap, tape, or splint, or over a layer of cloth -- not directly against the skin. Some ice bags have a built-in cloth and can be put directly on the skin. Your injured part should be elevated as much as possible over the next 48 hours. Try to keep the injury above the level of the heart. Avoid use of the injured area. Elevation and rest will decrease the swelling. USE OF CXWF-KFT-LMBGGKH IBUPROFEN: Ibuprofen (Advil, Nuprin, Medipren, Motrin IB) is a medication for fever and pain control. In addition, it has anti- inflammatory effects which may be beneficial, especially in the treatment of injuries. It's best to take ibuprofen with food. Persons with ulcer disease or aller gy to aspirin should notify their physician of this before taking ibuprofen. Ibuprofen can be given every four to six hours, for a total of four doses daily. Age Pain or fever dose Antiinflammatory dose 6-8 yr 200 mg (1 tab) 200 mg (1 tab) 9-11 yr 200 mg (1 tab) 200-400 mg (1-2 tab) 11-14 yr 200-400 mg (1-2 tab) 400 mg (2 tab) 15-adult 400 mg (2 tab) 600 mg (3 tab) Knee Exercise Program It's important to strengthen the muscles around the knee. This protects the injured area and stabilizes a knee that's been loosened by ligament injury. EARLY - Even when motion of the knee is painful (even when wearing a splint), you can begin isometric "quads" exercises. While sitting, hold the knee out, and contract the muscles to stiffen it. It shouldn't be straightened all the way -- stiffen it in a slightly-bent position. Lift the leg and draw a "T" with your foot, up to 100 times. When it becomes easy, add a weight on your foot. LATE - When the doctor advises you, you can begin moving the knee against resistance. The front muscles (quadriceps) are most important. While sitting at a [employer], straighten the knee forcefully while pushing a weight up with your ankle. Start with five to 10 pounds. Do 10 to 20 repetitions, increasing the weight as tolerated. Don't use more weight than is comfortable! Over a few weeks, work up to 35 to 50 pounds. Athletes should try to reach 70 to 90 pounds. Oral Narcotic Medication You have been given a dispense pack [place] for pain control. This medication is a narcotic. It's best taken with food, as nausea can result if taken on an empty stomach. Don't operate machinery or drive within six hours of taking this medication. Do not combine this medicine with alcohol, or with any medication which can cause sedation (such as cold tablets or sleeping pills) unless you get permission from the physician. Narcotics tend to cause constipation. If possible, drink plenty of fluids and eat a diet high in fiber and fruits. FOLLOW-UP CARE: If you have been referred to a physician for follow-up care, call the physicians office for an appointment as you were instructed or within the next two days. If you experience worsening or a significant change in your symptoms, notify the physician immediately or return to the Emergency Department at any time for re-evaluation. Forms: Elevated Blood Pressure, Special Work Note, Smoking Cessation Education Referrals: FELY GREEN MD [ACTIVE STAFF] - Follow up as needed
--- NOTE | 2018-02-10 09:53 | RADIOLOGY REPORT (SQ) ---
EXAM DESCRIPTION: KNEE LEFT 4 VIEW COMPLETED DATE/TIME: 02/10/2018 9:42 am REASON FOR STUDY: injury during basketball game swelling and pain COMPARISON: None. NUMBER OF VIEWS: Four views left knee LIMITATIONS: None. FINDINGS: There is no acute or significant bone, joint or soft tissue abnormality. OTHER: No other significant finding. IMPRESSION: NORMAL STUDY. TECHNICAL DOCUMENTATION: JOB ID: [id number] Reading location - IP/workstation name: [email or web address]
[2018-02-10] MEDS ORDERED: HYDROCODONE/ACETAMINOPHEN 5-325 MG (6 TAB/ER DISP) PO PRN (10:09)
[2018-02-10 10:16] VITALS: BP 147/87
== END 2018-02-10 10:18 | disposition home or self-care (01) ==
LOC: ER 08:39
DX: S89.92XA Unspecified injury of left lower leg, initial encounter (principal); W51.XXXA Accidental striking against or bumped into by another person, initial encounter; Y93.67 Activity, basketball; Y92.310 Basketball court as the place of occurrence of the external cause; F17.210 Nicotine dependence, cigarettes, uncomplicated
CPT/HCPCS: 99406; 99283; 73564; L1830

== ENCOUNTER 2018-10-14 02:53 | Emergency (ER) | payer SELFPAY ==
[2018-10-14 03:16] VITALS: BP 127/68
[2018-10-14] MEDS ORDERED: OLANZAPINE 5 MG TABLET PO ONE (04:08)
[2018-10-14 05:51] LABS: ABSOLUTE BASOPHILS # (AUTO) 0.1 10^3/uL (0.0-0.2); ABSOLUTE EOSINOPHILS # (AUTO) 0.2 10^3/uL (0.0-0.6); ABSOLUTE LYMPHOCYTES (AUTO) 2.5 10^3/uL (0.5-4.7); ABSOLUTE MONOCYTES (AUTO) 0.4 10^3/uL (0.1-1.4); ABSOLUTE NEUT (AUTO) 3.5 10^3/uL (1.7-8.2); BASOPHILS % (AUTO) 1.2 % (0-2); EOSINOPHILS % (AUTO) 2.6 % (0-6); HEMATOCRIT 38.3 % (37.9-51.0); HEMOGLOBIN 13.3 g/dL (13.5-17.0); LYMPHOCYTES % (AUTO) 36.8 % (13-45); MEAN CORPUSCULAR HEMOGLOBIN 31.5 pg (27.0-33.4); MEAN CORPUSCULAR HGB CONC 34.8 g/dL (32.0-36.0); MEAN CORPUSCULAR VOLUME 91 fl (80-97); MONOCYTES % (AUTO) 6.7 % (3-13); PLATELET COUNT 232 10^3/uL (150-450); RED BLOOD COUNT 4.23 10^6/uL (4.35-5.55); RED CELL DISTRIBUTION WIDTH 13.3 % (11.5-14.0); SEGMENTED NEUTROPHILS % (AUTO) 52.7 % (42-78); TOTAL CELLS COUNTED % (AUTO) 100 %; WHITE BLOOD COUNT 6.7 10^3/uL (4.0-10.5)
--- NOTE | 2018-10-14 05:55 | ER Document Report ---
Entered by KOURTNEY REDD SCRIBE 10/14/18 0413 Acting as scribe for:ZULEMA OCONNELL DO ED Psych Disorder / Suicide - General Chief Complaint: Psych Problem Stated Complaint: PSYCH Time Seen by Provider: 10/14/18 03:37 Mode of Arrival: Ambulatory Information source: Patient Notes: Patient is a 28 year old male that presents to the emergency department today with complaints of suicidal ideation. Patient states he has bipolar disorder and has been having difficulty with falling to sleep. When asked if this is a recent issue, the patient responds with "no, this has been going on forever". Patient states he has never been on medication for psychiatric illness. TRAVEL OUTSIDE OF THE [place] IN LAST 30 DAYS: No - Related Data Allergies/Adverse Reactions: No Known Allergies Allergy (Verified 02/10/18 08:40) Past Medical History - General Information source: Patient - Social History Smoking Status: Current Every Day Smoker Cigarette use (# per day): Yes Chew tobacco use (# tins/day): No Smoking Education Provided: No Frequency of alcohol use: None Drug Abuse: Marijuana Lives with: Family Family History: Reviewed & Not Pertinent Pulmonary Medical History: Reports: Hx Asthma Musculoskeletal Medical History: Reports Hx Musculoskeletal Trauma Psychiatric Medical History: Reports: Hx Bipolar Disorder - Immunizations Hx Diphtheria, Pertussis, Tetanus Vaccination: Yes Review of Systems - Review of Systems Constitutional: See HPI, Other - difficulty going to sleep EENT: No symptoms reported Cardiovascular: No symptoms reported Respiratory: No symptoms reported Gastrointestinal: No symptoms reported Genitourinary: No symptoms reported Male Genitourinary: No symptoms reported Musculoskeletal: No symptoms reported Skin: No symptoms reported Hematologic/Lymphatic: No symptoms reported Neurological/Psychological: See HPI, Suicidal ideation -: Yes All other systems reviewed and negative Physical Exam - Vital signs Vitals: Temp Pulse Resp BP Pulse Ox 98.2 F 62 16 127/68 H 100 10/14/18 03:09 10/14/18 03:09 10/14/18 03:09 10/14/18 03:09 10/14/18 03:09 Interpretation: Normal - General General appearance: Appears well, Alert - HEENT Head: Normocephalic, Atraumatic Eyes: Normal Pupils: PERRL - Respiratory Respiratory status: No respiratory distress Chest status: Nontender Breath sounds: Normal Chest palpation: Normal - Cardiovascular Rhythm: Regular Heart sounds: Normal auscultation Murmur: No - Abdominal Inspection: Normal Distension: No distension Bowel sounds: Normal Tenderness: Nontender Organomegaly: No organomegaly - Back Back: Normal, Nontender - Extremities General upper extremity: Normal inspection, Nontender, Normal color, Normal ROM, Normal temperature General lower extremity: Normal inspection, Nontender, Normal color, Normal ROM, Normal temperature, Normal weight bearing. No: Aman's sign - Neurological Neuro grossly intact: Yes Cognition: Normal Orientation: AAOx4 Kandy Coma Scale Eye Opening: Spontaneous [place] Coma Scale Verbal: Oriented [place] Coma Scale Motor: Obeys Commands [place] Coma Scale Total: 15 Speech: Normal Motor strength normal: LUE, RUE, LLE, RLE Sensory: Normal - Psychological Associated symptoms: Agitated, Psychomotor agitation, Restlessness, Unable to sleep, Other - Pacing in room - Skin Skin Temperature: Warm Skin Moisture: Dry Skin Color: Normal Course - Re-evaluation Re-evalutation: 10/14/18 05:53 Patient is a 28-year-old male who comes in stating that he needs to be tested for bipolar or disorder and that he is unable to sleep. He is pacing in the room. Patient placed under involuntary commitment paperwork and given Zyprexa to try to help him sleep. He will be held for mental health evaluation. Care transition to Dr. Ramos pending blood work and urine results. - Vital Signs Vital signs: Temp Pulse Resp BP Pulse Ox 98.2 F 62 16 127/68 H 100 10/14/18 03:09 10/14/18 03:09 10/14/18 03:09 10/14/18 03:09 10/14/18 03:09 - Laboratory Result Diagrams: 10/14/18 05:30 10/14/18 05:30 Discharge - Discharge Clinical Impression: Suicidal ideation Insomnia Qualifiers: Insomnia type: unspecified Qualified Code(s): G47.00 - Insomnia, unspecified Condition: Stable Disposition: OTHER I personally performed the services described in the documentation, reviewed and edited the documentation which was dictated to the scribe in my presence, and it accurately records my words and actions.
[2018-10-14 06:12] LABS: ALBUMIN 4.2 g/dL (3.5-5.0); ALKALINE PHOSPHATASE 52 U/L (38-126); ANION GAP 6 (5-19); ASPARTATE AMINO TRANSFERASE 22 U/L (17-59); BILIRUBIN,DIRECT 0.3 mg/dL (0.0-0.4); BILIRUBIN,TOTAL 0.4 mg/dL (0.2-1.3); BLOOD UREA NITROGEN 17 mg/dL (7-20); CALCIUM 9.9 mg/dL (8.4-10.2); CARBON DIOXIDE 28 mmol/L (22-30); CHLORIDE 104 mmol/L (98-107); GLUCOSE 92 mg/dL (75-110); POTASSIUM 4.4 mmol/L (3.6-5.0); TOTAL PROTEIN 7.5 g/dL (6.3-8.2)
[2018-10-14 06:13] LABS: ACETAMINOPHEN < 10 ug/mL (10-30); ALCOHOL < 10 mg/dL (NONE DETECTED); SALICYLATE < 1.0 mg/dL (2.0-20.0)
--- NOTE | 2018-10-14 09:55 | ER Document Report ---
Doctor's Note Notes: 10/14/18 09:54 Patient seen and examined, but only briefly. Evidently he was having some issues with insomnia, what ever we gave him here earlier worked significantly. He was sleeping comfortably. He currently denies any suicidal ideations. He denies any acute complaints or concerns, states he simply wants to go back to sleep. Heart is regular rate and rhythm, lungs are clear to station bilaterally. In short this is a 28-year-old male with bipolar disorder, who presented with suicidal ideation and insomnia. He has a significant other with him. At this point will follow psychosocial evaluation recommendations, likely medication changes and discharge with outpatient follow-up.
--- NOTE | 2018-10-14 14:10 | PSYCHOLOGICAL NOTE ---
Psych Note - Psych Note Date seen by psych provider: 10/14/18 Time seen by psych provider: 07:59 - Chart review at 0759. Evaluation with patient and gf from [id number] and then lat afternoon after patient became more alert (had some sedation from medication). Psych Note: Presenting Problem: 24 Hour IVC Petition, SI, poor sleep, pacing, A/V hallucinations. Patient was administered Zyprexa 10MG PO at 0431. He admitted to marijuana use and UDS only positive for cannabis. He denied previous MH Hx to include medications and inpatient hospitalizations. He denied family Hx of MH. He denied current SI, admitted to having them sometimes, never any plan and has never taken action. He acknowledged stress related to everybody gone in his life. He denied living alone but not with girlfriend. He reported mind racing and poor sleep. He stated he wanted to be linked to therapy and outpatient services. Girlfriend (Adilia) was at bedside. 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 He noted "whatever they gave me messed me up and made me tired." Late afternoon patient was up out of bed, using restroom, finally provided urine sample (had been sleeping and in bed all day), was able to engage in evaluation and dialogue c onversation, had fair eye contact and conversational speech was within normal limits for rate/tone/prosody. Diagnosis: Cannabis Use Disorder, Severe Poor Sleep R/O Bipolar Disorder Medication recommendation made by the psychiatric medical provider, Dr. Saul MD., includes: Add Zyprexa 2.5MG twice a day for mood stabilization/impulse control Impression/Plan: Patient is cleared from acute psychiatric services. Recommendation to rescind 24 Hour IVC Petition. Girlfriend has been at bedside the entire time and is natural support. Patient denied current SI, admitted he has thoughts from time to time, denied any plans or ever taking any action. Late afternoon patient was up out of bed, using restroom, finally provided urine sample (had been sleeping and in bed all day), was able to engage in evaluation and dialogue conversation, had fair eye contact and conversational speech was within normal limits for rate/tone/prosody. Patient requested to be linked up with outpatient services. Provided prescription for medication to help manage mood/impulse control, Good RX card with information about [facility] being cheapest place to get the medication, outpatient MH resource sheet for follow up at [facility] (walk ins M-F [phone]) with documentation to do so tomorrow (10/15/18) morning, and highlighted IFS MCM contact number. Consulted with Dr. Riggins regarding the management and care of patient. ED Physician in agreement with recommendations.
[2018-10-14 14:48] LABS: APPEARANCE,URINE CLEAR; BILIRUBIN,URINE NEGATIVE (NEGATIVE); COLOR,URINE YELLOW; GLUCOSE, URINE NEGATIVE (NEGATIVE); KETONES,URINE NEGATIVE (NEGATIVE); LEUKOCYTE ESTERASE,URINE MODERATE (NEGATIVE); NITRITE,URINE NEGATIVE (NEGATIVE); PROTEIN,URINE NEGATIVE (NEGATIVE); URINE SPECIFIC GRAVITY 1.011; UROBILINOGEN,URINE NEGATIVE mg/dL (<2.0)
[2018-10-14 15:07] LABS: URINE AMPHETAMINES SCREEN NEGATIVE; URINE BARBITURATES SCREEN NEGATIVE; URINE BENZODIAZEPINES SCREEN NEGATIVE; URINE COCAINE SCREEN NEGATIVE; URINE MARIJUANA (THC) SCREEN UNCONFIRMED POSITIVE; URINE METHADONE SCREEN NEGATIVE; URINE PHENCYCLIDINE SCREEN NEGATIVE
[2018-10-14] MEDS ORDERED: OLANZAPINE 2.5 MG TABLET PO SCH (18:00)
--- NOTE | 2018-10-15 23:34 | EKG REPORT ---
SEVERITY:- NORMAL ECG - SINUS RHYTHM : Confirmed by: Toi Mccray 15-Oct-2018 23:33:47
== END 2018-10-14 15:25 | disposition home or self-care (01) ==
LOC: ER 02:53
DX: R45.851 Suicidal ideations (principal); F39 Unspecified mood [affective] disorder; G47.00 Insomnia, unspecified; F17.210 Nicotine dependence, cigarettes, uncomplicated; J45.909 Unspecified asthma, uncomplicated
CPT/HCPCS: 36415; 80053; 80307; 81001; 85025; 93005; 93010; 99285